=== PATIENT | male | born 1980 | race Caucasian/White ===

== ENCOUNTER → 2016-12-23 08:37 | Outpatient (CLI) | payer MEDICAID | END | disposition home or self-care (01) | LOC: D.MRI 08:37 | DX: R42 Dizziness and giddiness (principal); R53.1 Weakness ==

== ENCOUNTER → 2017-02-09 15:24 | Outpatient (CLI) | payer MEDICAID | END | disposition home or self-care (01) | LOC: D.CT 15:24 | DX: C64.2 Malignant neoplasm of left kidney, except renal pelvis (principal) ==

== ENCOUNTER → 2017-03-10 07:38 | Outpatient (CLI) | payer MEDICAID ==
[2017-03-10 08:56] LABS: T4 THYROXINE 9.5 ug/dL (4.7-13.3)
[2017-03-10 08:57] LABS: C-REACTIVE PROTEIN < 0.2 mg/dL (0.0-0.9)
[2017-03-10 09:35] LABS: ERYTHROCYTE SEDIMENTATION RATE 3 mm/hr (0-15)
[2017-03-10 10:51] LABS: APPEARANCE - CSF COLORLESS; RBC - CSF 4 cmm (0-0)
[2017-03-10 11:13] LABS: GLUCOSE - CSF 59 MG/DL (40-75); PROTEIN - CSF 42 MG/DL (12-60)
[2017-03-11 07:24] LABS: RAPID PLASMA REAGIN Non Reactive (Non Reactive)
[2017-03-11 10:18] LABS: ANA REFLEX - DIRECT Negative (Negative); FOLATE (FOLIC ACID) - SERUM 6.4 ng/mL (>3.0)
[2017-03-11 13:16] LABS: FUNGUS STAIN Final report (())
[2017-03-11 19:11] LABS: ACID FAST SMEAR Negative (()); AFB SPECIMEN PROCESSING Not Indicated (())
== END | disposition home or self-care (01) ==
LOC: D.LAB 03-09 10:15 → D.RAD 03-09 10:30 → D.LAB 07:38
PROVIDERS: Psychiatry & Neurology Neurology
DX: C64.2 Malignant neoplasm of left kidney, except renal pelvis (principal); R42 Dizziness and giddiness

== ENCOUNTER → 2017-03-13 | Emergency (ER) | payer MEDICAID | END | disposition home or self-care (01) | LOC: D.ER 15:47 | DX: R41.82 Altered mental status, unspecified (principal); E87.1 Hypo-osmolality and hyponatremia; J18.9 Pneumonia, unspecified organism; R53.81 Other malaise; R11.2 Nausea with vomiting, unspecified; R41.0 Disorientation, unspecified; R82.99 Other abnormal findings in urine; J44.9 Chronic obstructive pulmonary disease, unspecified ==

== ENCOUNTER 2017-11-11 06:49 | Day surgery (SDC) | payer MEDICAID ==
[2017-11-10 09:22] LABS: INR 1.01 (0.85-1.17); PROTIME 12.9 SECONDS (11.6-15.0)
[2017-11-10 09:23] LABS: ANION GAP 14.7 mmol/L (8-16); APTT 36.3 SECONDS (22.8-39.4); CALCIUM 9.3 mg/dL (8.5-10.1); CARBON DIOXIDE 27.7 mmol/L (21.0-32.0); CREATININE - SERUM 1.5 mg/dL (0.6-1.3); POTASSIUM - SERUM 4.4 mmol/L (3.5-5.1)
[2017-11-10 09:52] LABS: BASOPHILS 0.4 % (0-2); EOSINOPHILS 2.1 % (0-7); HEMATOCRIT 46.8 % (42.0-54.0); HEMOGLOBIN 15.7 g/dL (13.5-17.5); IMMATURE GRANULOCYTES 0.2 % (0-5); LYMPHOCYTES 16.2 % (15-50); MCH 30.6 pg (26.0-34.0); MCHC 33.5 g/dL (31.0-37.0); MCV 91.2 fL (80.0-100.0); MEAN PLATELET VOLUME 10.1 fL (7.4-10.4); MONOCYTES 9.9 % (2-11); NEUTROPHILS 71.2 % (40-80); PLATELET COUNT 206 10x3/uL (130-400); RBC 5.13 10x6/uL (4.20-6.10); RDW 13.4 % (11.5-14.5); WBC 9.4 10x3/uL (4.8-10.8)
[~2017-11-11] VITALS: Ht 182.9 cm; Wt 93.0 kg
--- NOTE | ~2017-11-11 | OP ---
PATIENT NAME: DANIELA FLEMING MEDICAL RECORD: [id number] :84 LOCATION:D.OPS ADMISSION DATE: SURGEON: SHARON HEARN MD DATE OF OPERATION: 11/11/2017 PRINCIPAL DIAGNOSES: 1. Rule out myopathy. 2. Rule out neuropathy. 3. Weakness, left greater than right. POSTOPERATIVE DIAGNOSES: 1. Rule out myopathy. 2. Rule out neuropathy. 3. Weakness, left greater than right. PROCEDURES: 1. Left vastus lateralis thigh muscle biopsy. 2. Left sural nerve biopsy. SURGEON: Sharon Hearn MD. TOBACCO DIPPER: None. BLOOD LOSS: Minimal. ANESTHESIA: General. COMPLICATIONS: None. The risks, possible complications, and alternatives to the procedure were explained to the patient. He elects to proceed. OPERATIVE COURSE: The patient was conveyed to the operating room electively on 11/11/2017. General anesthesia was induced by the anesthesia staff. The patient was placed in the semi-lateral decubitus position with the right side down. The left lower extremity was sterilely prepped and draped. An incision was accomplished behind the left lateral malleolus. I dissected down to some crossing veins, which were ligated doubly and divided between ligatures. I dissected out the sural nerve. It was divided proximally and distally. It was sent to pathologist who confirmed that this was indeed nerve and not a tendon. Meticulous hemostasis was achieved with electrocautery as well as with Misa. The subdermis was approximated with interrupted 3-0 Vicryls. The skin was approximated with a running intracuticular 3-0 Vicryl. A Prineo dressing was applied. Attention was then turned to the thigh. On the lateral aspect of the thigh, an axial incision was accomplished. I dissected down to the muscular fascia of the thigh. A rectangular incision was accomplished. Utilizing the muscle grasping forceps, I excised a healthy piece of muscle with overlying fascia. Hemostasis was achieved with electrocautery as well as with Misa. I then closed the fascia with multiple interrupted horizontal mattress #1 Vicryls. The subdermis was approximated with interrupted 3-0 Vicryls. The skin was approximated with a running intracuticular 3-0 Vicryl. A Prineo dressing was then applied. OPERATIVE REPORT [id number] DANIELA FLEMING The patient was then extubated and conveyed to post-anesthesia care unit where he was in stable condition. He will be dismissed home on hydrocodone for pain. I will see him in the office in 2-3 weeks. TRANSINT:[id number] Voice Confirmation ID: [id number] DOCUMENT ID: [id number] CC: Dr. Palafox, [facility] Rheumatology, not found. SHARON HEARN MD at 1504 CC: KEITH BLANDON and CHRISTAL STEVEN MD [id number] DICTATION DATE: 11/11/17 1028 [employer] PROFESSOR: 11/11/17 1302 [facility] [address] [place] [address]
[2017-11-11 06:21] VITALS: Ht 182.9 cm; Wt 93.0 kg
[~2017-11-11 06:49] MED LIST: ACETAMINOPHEN500 M1 PO; FOLIC ACID1 MG PO; IMITREX50 MG PO; PLAQUENIL200 MG PO; PREDNISONE5 MG PO; VALIUM5 MG; ZOLOFT100 MG PO; ZYLOPRIM100 MG PO
== END 2017-11-11 15:30 | disposition home or self-care (01) ==
LOC: D.OPS 06:49 → D.PAN 08:00 → D.OPS 08:00
PROVIDERS: Anesthesiology
DX: M62.81 Muscle weakness (generalized) (principal); Z01.812 Encounter for preprocedural laboratory examination